=== PATIENT | female | born 1975 | race American Indian/Alaskan Native ===

== ENCOUNTER 2017-05-19 21:39 | Observation (INO) | payer OTHER ==
[2017-05-19 22:02] VITALS: BMI 33.9
--- NOTE | 2017-05-19 22:03 | ED PDOC ---
Arrival/HPI - General Time Seen by Provider: 05/19/17 21:42 Historian: Patient - History of Present Illness Narrative History of Present Illness (Text): 05/19/17 21:57 Asia Younger is a 42 year old female, with history of hypertension on Lisinopril /HCTZ combination, presents to the emergency department complaining of swelling to lips. Patient states that she had mild swelling to upper lip yesterday night , but resolved spontaneously. She reports that she thought she might have a problem with her teeth causing the lip swelling, so went to the dentist today who told her there are no issues with her teeth. She states upper lip swelling was worse tonight so she presented to ED. Denies any swelling to tongue, shortness of breath, difficulty swallowing, or difficulty breathing. Denies any new detergent, foods, lipstick. Patient is on day 3 of Zithromax for bronchitis but otherwise denies new medications. Patient took Benadryl at home prior to arrival. Denies any fever, chills, headache, dizziness, chest pain, nausea, vomiting, diarrhea, urinary symptoms, or any other complaints at this time. 05/19/17 22:25 Time/Duration: 1-3 hours Symptom Onset: Sudden Severity Level: Mild Activities at Onset: Light Past Medical History - Provider Review Nursing Documentation Reviewed: Yes - Cardiac Hx Hypertension: Yes - Pulmonary Hx Respiratory Disorders: No - Neurological Hx Neurological Disorder: No - HEENT Hx HEENT Disorder: No - Renal Hx Renal Disorder: No - Endocrine/Metabolic Hx Endocrine Disorders: No - Hematological/Oncological Hx Blood Disorders: No - Integumentary Hx Dermatological Disorder: No - Musculoskeletal/Rheumatological Hx Musculoskeletal Disorders: No - Gastrointestinal Hx Gastrointestinal Disorders: Yes Hx Gastroesophageal Reflux: Yes - Genitourinary/Gynecological Hx Genitourinary Disorders: No - Psychiatric Hx Substance Use: No - Anesthesia Hx Anesthesia: No Family/Social History - Physician Review Nursing Documentation Reviewed: Yes Family/Social History: No Known Family HX Smoking Status: Light Smoker < 10 Cigarettes Daily Hx Alcohol Use: Yes Hx Substance Use: No Allergies/Home Meds Allergies/Adverse Reactions: Allergies No Known Allergies Allergy (Verified 08/04/16 16:35) Home Medications: Home Meds Medication Instructions Recorded Confirmed amLODIPine [Norvasc] 5 mg PO DAILY 06/22/16 08/04/16 Lisinopril/Hydrochlorothiazide 1 each PO DAILY 08/04/16 08/04/16 [Zestoretic 10-12.5 mg Tablet] Omeprazole 40 mg PO DAILY 08/04/16 08/04/16 Review of Systems - Physician Review All systems were reviewed & negative as marked: Yes - Review of Systems Constitutional: Normal. absent: Fatigue, Fevers ENT: Other (lip swelling ). absent: Voice Changes, Sore Throat Respiratory: Normal. absent: SOB, Cough, Sputum Cardiovascular: Normal. absent: Chest Pain, Palpitations, Edema Gastrointestinal: Normal. absent: Abdominal Pain, Diarrhea, Nausea, Vomiting Genitourinary Female: Normal. absent: Dysuria, Frequency Neurological: Normal. absent: Headache, Dizziness Endocrine: absent: Diaphoresis Hemo/Lymphatic: Normal Psychiatric: Normal Physical Exam Vital Signs Reviewed: Yes Vital Signs Temp Pulse Resp BP Pulse Ox 05/20/17 02:58 80 12 145/86 98 05/20/17 01:30 83 14 148/84 97 05/19/17 22:01 99.6 F 92 H 18 152/98 H 99 Temperature: Afebrile Blood Pressure: Normal Pulse: Regular Respiratory Rate: Normal Appearance: Positive for: Well-Appearing, Non-Toxic, Comfortable Pain Distress: None Mental Status: Positive for: Alert and Oriented X 3 - Systems Exam Head: Present: Atraumatic, Normocephalic Pupils: Present: PERRL Extroacular Muscles: Present: EOMI Conjunctiva: Present: Normal Mouth: Present: Moist Mucous Membranes, Normal Tounge, Normal Teeth, Other ( speaking in complete sentences, normal phonation). No: Drooling, Trismus, Normal Lips (swelling to upper and lower lips, predominantly upper lip. ) Pharnyx: Present: Normal, Other (normal phonation ). No: ERYTHEMA, EXUDATE, Peritonsilar Swelling, Uvular Deviation, Muffled/Hoarse Voice, Strider, Soft Palate/Uvular Edema Neck: Present: Normal Range of Motion Respiratory/Chest: Present: Clear to Auscultation, Good Air Exchange. No: Respiratory Distress, Accessory Muscle Use Cardiovascular: Present: Regular Rate and Rhythm, Normal S1, S2. No: Murmurs Abdomen: Present: Normal Bowel Sounds. No: Tenderness, Distention, Peritoneal Signs Upper Extremity: Present: Normal Inspection. No: Cyanosis, Edema Lower Extremity: Present: Normal Inspection. No: Edema Neurological: Present: GCS=15, CN II-XII Intact, Speech Normal, Motor Func Grossly Intact, Normal Sensory Function Skin: Present: Warm, Dry, Normal Color. No: Rashes Psychiatric: Present: Alert, Oriented x 3, Normal Insight, Normal Concentration Medical Decision Making ED Course and Treatment: 05/19/17 22:06 Impression: A 42 year old female who presents to the emergency department complaining of swelling to lips following. I am concerned that this could be secondary to evelyn inhibitor use as there appear to be no other triggers. There appears to be no airway involvement and patient has isolated lip swelling, but will need monitoring in emergency depart. Patient took Benadryl 50mg at home prior to arrival. Plan: -- Pepcid -- Prednisone -- Reassess and disposition Progress Notes: 05/19/17 22:07 Advised patient to discontinue EVELYN inhibitors until further evaluation with PMD. Will discharge patient on HCTZ as she should not completely stop her BP medication. Will place patient on EDOBS to monitor for worsening symptoms. 05/19/17 22:29 05/20/17 02:24 Patient has been monitored for 5 hours in the emergency department . She has had no worsening of symptoms and no respiratory involvement. Patient last had benadryl at 6pm. Patient instructed on the importance of PMD follow-up and avoiding evelyn inhibitors. - Medication Orders Current Medication Orders: Discontinued Medications Diphenhydramine HCl (Benadryl) 50 mg PO STAT STA Stop: 05/20/17 02:46 Last Admin: 05/20/17 02:55 Dose: 50 mg Famotidine (Pepcid) 20 mg IVP STAT STA Stop: 05/19/17 21:55 Last Admin: 05/19/17 22:38 Dose: 20 mg Hydrochlorothiazide (Microzide) 12.5 mg PO DAILY CAROL ANN Prednisone (Prednisone Tab) 60 mg PO STAT ONE Stop: 05/19/17 21:55 Last Admin: 05/19/17 22:36 Dose: 60 mg ED OBSERVATION Discharge: Yes Date of observation admission: 05/19/17 Time of observation admission: 22:08 - Observation admission statement Patient is being placed in observation because:: Allergic Reaction - Goals of Observation Goals of observation are:: monitor for worsening symptoms/change in condition/airway involvement - Progress Note Progress Note: 05/20/17 00:08 Patient is resting comfortably in the emergency department. Stable vitals. No respiratory distress. 05/20/17 02:08 Sleeping the emergency department with stable vitals. No acute distress. - Scribe Statement The provider has reviewed the documentation as recorded by the Scribe Humberto Alonzo Provider Attestation: Provider Scribe Attestation: All medical record entries made by the Scribe were at my direction and personally dictated by me. I have reviewed the chart and agree that the record accurately reflects my personal performance of the history, physical exam, medical decision making, and the department course for this patient. I have also personally directed, reviewed, and agree with the discharge instructions and disposition. Disposition/Present on Arrival - Present on Arrival Any Indicators Present on Arrival: No History of DVT/PE: No History of Uncontrolled Diabetes: No Urinary Catheter: No History Surgical Site Infection Following: None - Disposition Have Diagnosis and Disposition been Completed?: Yes Diagnosis: Lip swelling Disposition: HOME/ ROUTINE Disposition Time: 22:06 Condition: GOOD
[2017-05-19 22:14] VITALS: TEMP 99.6
[2017-05-20 02:59] VITALS: BP 145/86; PULSE 80; RESP 12; O2SAT 98
== END 2017-05-20 02:25 | disposition home or self-care (01) ==
LOC: ED 21:39 → EROBSV 21:56
PROVIDERS: ADMIT Emergency Medicine; ATTEND Emergency Medicine
DX: R22.0 Localized swelling, mass and lump, head (principal); I10 Essential (primary) hypertension; Z72.0 Tobacco use
CPT/HCPCS: 96374; 99283; G0378